=== PATIENT | female | born 2000 | race African-American/Black ===

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

== ENCOUNTER 2022-06-13 16:31 | Emergency (ER) | payer OTHER ==
[2022-06-13 18:07] LABS: Bilirubin Negative (Negative); Blood, Urine Negative (Negative); Clarity Clear (Clear); Glucose, Urine (Dipstick) Normal (Negative); Ketone, Urine Negative (Negative); Leukocyte Negative Leu/uL (Negative); Nitrite Negative (Negative); Protein, Urine (Dipstick) Negative (Neg-Trace); Specific Gravity, Urine 1.018 (1.002-1.036); Urobilinogen Normal mg/dL (Less than 2); pH, Urine 5.5 (5.0-9.0)
[2022-06-13 18:09] LABS: Pregnancy Test - Urine (BHCG) Negative (Negative); Pregu Control Background? CLEAR/WHITE (CLR/WHITE); Pregu Control Bar Appear? YES (CONTROL BAR); Specific Gravity 1.018 (1.002-1.036)
== END 2022-06-13 18:12 | disposition home or self-care (01) ==
LOC: ERS 16:31
DX: S39.012A Strain of muscle, fascia and tendon of lower back, initial encounter (principal); X50.0XXA Overexertion from strenuous movement or load, initial encounter
CPT/HCPCS: 81003; 81025; 99283

== ENCOUNTER 2024-09-26 13:47 | Emergency (ER) | payer OTHER, SELFPAY ==
[2024-09-26] MEDS ORDERED: HYDROcodone/Acetaminophen 5/325 mg Tablet ONE (14:28)
== END 2024-09-26 14:45 | disposition home or self-care (01) ==
LOC: ERS 13:47
DX: K08.89 Other specified disorders of teeth and supporting structures (principal)
CPT/HCPCS: 99282

== ENCOUNTER 2025-07-10 10:09 | Emergency (ER) | payer SELFPAY ==
[2025-07-10 11:29] LABS: #Basophils 0.03 10x3/uL (0.0-0.2); #Eosinophils 0.11 10x3/uL (0.0-0.7); #Monocytes 0.39 10x3/uL (0.11-0.59); #Neutrophils 3.93 10x3/uL (1.40-6.50); %Basophils 0.5 % (0.0-1.0); %Eosinophils 1.8 % (0.0-10.0); %Lymphocytes 27.7 % (21.0-51.0); %Monocytes 6.3 % (0.0-10.0); %Neutrophils 63.4 % (42.0-75.0); Hematocrit 42.0 % (36.0-47.0); Hemoglobin 12.9 g/dL (12.0-16.0); Mean Corpuscular Hemoglobin 25.3 pg (27.0-31.0); Mean Corpuscular Volume 82.5 fL (78.0-98.0); Platelet Count 359 10x3/uL (130-400); Red Blood Cell (RBC) Count 5.09 mill/uL (4.20-5.40); White Blood Cell (WBC) Count 6.20 10x3/uL (4.8-10.8)
[2025-07-10] MEDS ORDERED: Ondansetron PF 4 MG/2 ML Vial ONE (11:35)
[2025-07-10] MEDS ORDERED: Dicyclomine 20 MG TAB ONE (11:35)
[2025-07-10 11:38] LABS: Pregnancy Test - Urine (BHCG) Negative (Negative); Pregu Control Background? CLEAR/WHITE (CLR/WHITE); Pregu Control Bar Appear? YES (CONTROL BAR)
[2025-07-10 11:39] LABS: CAUTI Indications for Culture Acute Hematuria; Glucose, Urine (Dipstick) Normal (Negative); Leukocyte 25 Leu/uL (Negative); Protein, Urine (Dipstick) 10 mg/dL (Neg-Trace); RBC/HPF 0-3 HPF (0-3); Specific Gravity, Urine 1.024 (1.002-1.036)
[2025-07-10 11:53] LABS: ALT (SGPT) 14 U/L (Less than 34); AST (SGOT) 20 U/L (11-34); Albumin 4.1 g/dL (3.1-4.5); Alkaline Phosphatase 63 U/L (40-110); Anion Gap 11 mmol/L (10-20); BUN (Urea Nitrogen) 8 mg/dL (7.0-18.7); Bilirubin, Total 0.9 mg/dL (0.3-1.2); Calc. Creatinine Clearance 0 mL/min (70-130); Calcium 9.5 mg/dL (7.8-10.44); Carbon Dioxide 24 mmol/L (22-29); Chloride 108 mmol/L (98-107); Globulin 3.1 g/dL (2.4-3.5); Glucose 89 mg/dL (70-105); Lipase 11 U/L (8-78); Potassium 3.7 mmol/L (3.5-5.1); Sodium 139 mmol/L (136-145)
[2025-07-10 12:06] LABS: Bacteria/HPF 1+ HPF (None Seen)
[2025-07-10 12:07] LABS: Urine Culture Reflex No No
== END 2025-07-10 13:55 | disposition home or self-care (01) ==
LOC: ERS 10:09
DX: R11.2 Nausea with vomiting, unspecified (principal); N39.0 Urinary tract infection, site not specified
CPT/HCPCS: 76705; 80053; 81001; 81025; 83690; 85025; 96374; J2405